=== PATIENT | female | born 1950 | race Caucasian/White ===

== ENCOUNTER 2024-05-28 15:22 | Inpatient (IN) | payer MEDICARE, OTHER ==
[~2024-05-28] VITALS: Ht 160 cm; Wt 55.8 kg
[2024-05-28] MEDS ORDERED: HYDROMORPHONE 2 MG/1 ML DISP.SYRIN ONE (16:53)
[2024-05-28 16:54] LABS: BASOPHILS # (AUTO) 0.1 K/UL (0.0-0.2); BASOPHILS % (AUTO) 1.1 % (0.0-2.0); EOSINOPHILS # (AUTO) 0.1 K/uL (0.0-0.7); EOSINOPHILS % (AUTO) 1.5 % (0.0-7.0); HEMATOCRIT 32.8 % (31.2-41.9); HEMOGLOBIN 10.9 g/dL (10.9-14.3); LYMPHOCYTES # (AUTO) 1.8 K/uL (0.8-4.8); MEAN CORPUSCULAR HEMOGLOBIN 30.6 uug (24.7-32.8); MEAN CORPUSCULAR HGB CONC 33 g/dL (32.3-35.6); MONOCYTES # (AUTO) 0.7 K/uL (0.1-1.30); NEUTROPHILS # (AUTO) 4.6 K/uL (1.8-8.9); NEUTROPHILS % (AUTO) 63.4 % (38.5-71.5); PLATELET COUNT (AUTO) 258 K/uL (179-408); RED BLOOD CELL COUNT(AUTO) 3.57 MIL/uL (3.63-4.92); RED CELL DISTRIBUTION WIDTH 14.4 % (12.3-17.7); WHITE BLOOD COUNT (AUTO) 7.3 K/uL (3.8-11.8)
[2024-05-28] MEDS: HYDROMORPHONE 1 MG/1 ML DISP.SYRIN IM ONE (16:57)
[2024-05-28 16:58] LABS: DIFFERENTIAL COMMENT 1
[2024-05-28 17:02] LABS: CALCIUM 8.4 mg/dL (8.5-10.1); CARBON DIOXIDE 26 mmol/L (21-32); CHLORIDE 105 mmol/L (98-107); GLUCOSE 92 mg/dL (74-106); POTASSIUM 4.3 mmol/L (3.5-5.1); SODIUM SERUM 139 mmol/L (136-145); UREA NITROGEN, BLOOD 19 mg/dL (7-18)
[2024-05-28 17:11] LABS: ALANINE AMINOTRANSFERASE 22 U/L (14-59); ALBUMIN 3.2 g/dL (3.4-5.0); ALKALINE PHOSPHATASE 91 U/L (50-136); ASPARTATE AMINOTRANSFERASE 21 U/L (15-37); BILIRUBIN,DIRECT 0.1 mg/dL (0.0-0.2); BILIRUBIN,TOTAL 0.3 mg/dL (0.2-1.0); TOTAL PROTEIN, SERUM 7.3 g/dL (6.4-8.2)
[2024-05-28] MEDS ORDERED: ZOLPIDEM 5 MG TABLET PO PRN ×2 (20:30)
[2024-05-28] MEDS: BLOOD SUGAR DIAGNOSTIC 1 EACH STRIP VI ONE (20:30)
[2024-05-28] MEDS ORDERED: MAGNESIUM HYDROXIDE 30 ML LIQUID UDC PO PRN (20:30)
[2024-05-28] MEDS: LORAZEPAM 1 MG TABLET PO PRN (21:40)
[2024-05-28] MEDS ORDERED: CLON0.1T PO (21:59)
[2024-05-28] MEDS ORDERED: BACL5TAB PO (21:59)
[2024-05-28] MEDS ORDERED: DULO40CA2 PO (21:59)
[2024-05-28] MEDS ORDERED: DOCU100C36 PO (21:59)
[2024-05-28] MEDS ORDERED: FAMO20TA8 PO (21:59)
[2024-05-28] MEDS ORDERED: CHOL10005 PO (21:59)
[2024-05-28] MEDS ORDERED: PANT40TA2 PO (22:06)
[2024-05-28] MEDS ORDERED: HYDR-3980 PO (22:06)
[2024-05-28] MEDS ORDERED: GABA300C PO (22:06)
[2024-05-28] MEDS ORDERED: LEVO50TA8 PO (22:06)
[2024-05-28] MEDS ORDERED: MIRT-121 PO (22:06)
[2024-05-28] MEDS ORDERED: CALC500T13 PO (22:15)
[2024-05-28] MEDS ORDERED: SENN-18 PO (22:15)
[2024-05-28] MEDS ORDERED: ONDA4TAB5 PO (22:15)
[2024-05-28] MEDS ORDERED: ROPI0.255 PO (22:15)
[2024-05-28] MEDS ORDERED: SUCR1TAB PO (22:15)
[2024-05-28] MEDS: SUCRALFATE 1 G TABLET PO SCH (23:30)
[2024-05-29] MEDS: BACLOFEN 10 MG TABLET PO SCH (06:58)
[2024-05-29] MEDS: GABAPENTIN 300 MG CAPSULE PO SCH (06:59)
[2024-05-29] MEDS: PANTOPRAZOLE SODIUM 40 MG TABLET.DR PO SCH (06:59)
[2024-05-29] MEDS: LEVOTHYROXINE SODIUM 50 MCG TABLET PO SCH (06:59)
[2024-05-29] MEDS ORDERED: ACET-2154 PO (07:41)
[2024-05-29] MEDS ORDERED: MAG355OR18 PO (07:41)
[2024-05-29] MEDS ORDERED: BISA10SU61 RC (07:44)
[2024-05-29] MEDS ORDERED: NA P133E RC (07:44)
[2024-05-29] MEDS ORDERED: MAGN400O6 PO (07:44)
[2024-05-29] MEDS ORDERED: CALC300T4 PO (07:45)
[2024-05-29] MEDS ORDERED: DICL100G31 TP (07:46)
[2024-05-29] MEDS ORDERED: ONDA4TAB5 PO (07:46)
[2024-05-29 08:16] VITALS: BP 131/82; TEMP 97.4; O2SAT 98
[2024-05-29] MEDS: SUCRALFATE 1 G TABLET PO SCH (09:16)
[2024-05-29 16:14] VITALS: BP 133/86; TEMP 97.6; O2SAT 97
[2024-05-29] MEDS: HYDROCODONE/APAP 10-325 MG TABLET PO PRN (16:42)
[2024-05-29 20:00] VITALS: BP 95/53; TEMP 98.4; O2SAT 94
[2024-05-29] MEDS: OXCARBAZEPINE 150 MG TABLET PO SCH (20:51)
[2024-05-29] MEDS: MIRTAZAPINE 15 MG TABLET PO SCH (20:51)
[2024-05-29] MEDS: ropiniROLE 0.25 MG TABLET PO SCH (20:51)
[2024-05-29] MEDS: SENNOSIDES 1 TABLET PO SCH (20:52)
[2024-05-30 08:12] VITALS: BP 142/75; TEMP 97.5; O2SAT 97
[2024-05-30] MEDS: CHOLECALCIFEROL 1,000 UNIT TABLET PO SCH (08:42)
[2024-05-30 16:12] VITALS: BP 148/98; TEMP 98.3; O2SAT 97
[2024-05-30 20:00] VITALS: BP 140/82; TEMP 98.3; O2SAT 94
[2024-05-30] MEDS: QUETIAPINE FUMARATE 25 MG TABLET PO SCH (21:02)
[2024-05-31] MEDS: ASPIRIN 81 MG TAB.CHEW PO SCH (08:44)
[2024-05-31 10:12] VITALS: BP 150/83; TEMP 97.8; O2SAT 95
[2024-05-31 15:24] VITALS: BP 139/74; O2SAT 97
[2024-05-31 16:04] VITALS: BP 142/87; TEMP 97.8; O2SAT 97
[2024-05-31 19:48] VITALS: BP 156/90; TEMP 97.6; O2SAT 97
[2024-05-31] MEDS: CLONIDINE HCL 0.1 MG TABLET PO PRN (19:50)
[2024-05-31] MEDS: ATORVASTATIN 40 MG TABLET PO SCH (20:26)
[2024-05-31 21:06] VITALS: BP 137/63; O2SAT 98
[2024-06-01] MEDS: REMEDY ESSENTIAL ZINC PASTE 113 GM TOP PRN (06:24)
[2024-06-01 08:08] VITALS: BP 134/74; TEMP 98.1; O2SAT 96
[2024-06-01] MEDS: QUETIAPINE FUMARATE 25 MG TABLET PO PRN (12:25)
[2024-06-01] MEDS: ACETAMINOPHEN 325 MG TABLET PO PRN (12:30)
[2024-06-01 16:12] VITALS: BP 127/71; TEMP 97.3; O2SAT 100
[2024-06-01 20:00] VITALS: BP 121/91; TEMP 94.3; O2SAT 100
[2024-06-01 20:25] VITALS: TEMP 97.2
[2024-06-02 07:56] VITALS: BP 134/80; TEMP 97.8; O2SAT 94
[2024-06-02 15:53] VITALS: BP 118/67; TEMP 98.2; O2SAT 92
[2024-06-02] MEDS: ENSURE ENLIVE (VAN) 240 ML LIQUID PO SCH (16:21)
[2024-06-02 20:00] VITALS: BP 110/67; TEMP 98; O2SAT 94
[2024-06-03 07:58] VITALS: BP 144/81; TEMP 98; O2SAT 94
[2024-06-03 15:55] VITALS: BP 154/85; TEMP 98.2; O2SAT 94
[2024-06-03 20:00] VITALS: BP 101/57; TEMP 97.2; O2SAT 94
[2024-06-03] MEDS: MIRTAZAPINE 15 MG TABLET PO SCH (20:26)
[2024-06-04 07:59] VITALS: BP 142/85; TEMP 98.2; O2SAT 96
[2024-06-04 15:38] VITALS: BP 131/80; TEMP 98; O2SAT 96
[2024-06-04 20:00] VITALS: BP 135/79; TEMP 98; O2SAT 96
[2024-06-05 08:12] VITALS: BP 113/67; TEMP 98.4; O2SAT 100
[2024-06-05 16:08] VITALS: BP 128/77; TEMP 97.5; O2SAT 98
[2024-06-05 20:00] VITALS: BP 142/80; TEMP 99.5; O2SAT 94
[2024-06-05] MEDS: QUETIAPINE FUMARATE 25 MG TABLET PO SCH (21:51)
[2024-06-05] MEDS: ATORVASTATIN 20 MG TABLET PO SCH (21:53)
[2024-06-06 08:14] VITALS: BP 126/70; TEMP 97.7; O2SAT 100
[2024-06-06 16:10] VITALS: BP 132/76; TEMP 97.8; O2SAT 94
[2024-06-06 19:00] VITALS: BP 120/84; TEMP 98.4; O2SAT 95
[2024-06-06] MEDS ORDERED: OXCARBAZEPINE 150 MG TABLET ONE (20:54)
[2024-06-07] MEDS: MAG HYDROX/AL HYDROX/SIMETH 30 ML LIQUID UDC PO PRN (00:23)
[2024-06-07 07:56] VITALS: BP 124/72; TEMP 98; O2SAT 99
[2024-06-07] MEDS: DIPHENOXYLATE HCL/ATROP SULF TABLET PO PRN (13:17)
[2024-06-07 15:45] VITALS: BP 112/70; TEMP 98; O2SAT 98
[2024-06-07 22:09] VITALS: BP 114/78; TEMP 98.3; O2SAT 96
== END 2024-06-08 03:04 | disposition short-term general hospital (02) | DRG 885 ==
LOC: ER 15:22 → GPS 19:55
PROVIDERS: ADMIT Psychiatry & Neurology Psychiatry; ATTEND Nurse Practitioner Acute Care
DX: F39 Unspecified mood [affective] disorder (principal); N18.9 Chronic kidney disease, unspecified; S72.142A Displaced intertrochanteric fracture of left femur, initial encounter for closed fracture; E44.1 Mild protein-calorie malnutrition; E88.09 Other disorders of plasma-protein metabolism, not elsewhere classified; E78.5 Hyperlipidemia, unspecified; W18.30XA Fall on same level, unspecified, initial encounter; Y92.230 Patient room in hospital as the place of occurrence of the external cause; I25.10 Atherosclerotic heart disease of native coronary artery without angina pectoris; K26.9 Duodenal ulcer, unspecified as acute or chronic, without hemorrhage or perforation; K29.70 Gastritis, unspecified, without bleeding; K58.9 Irritable bowel syndrome, unspecified; I12.9 Hypertensive chronic kidney disease with stage 1 through stage 4 chronic kidney disease, or unspecified chronic kidney disease; E03.9 Hypothyroidism, unspecified; Z79.890 Hormone replacement therapy; S09.90XA Unspecified injury of head, initial encounter; S62.172A Displaced fracture of trapezium [larger multangular], left wrist, initial encounter for closed fracture; Z79.899 Other long term (current) drug therapy; Z87.440 Personal history of urinary (tract) infections
CPT/HCPCS: 36415; 70150; 70450; 73130; 73501; 73700; 74018; 83605; 84484; 85025; C1758; J1171; J8499

== ENCOUNTER 2024-06-08 03:08 | Inpatient (IN) | payer MEDICARE, OTHER ==
[~2024-06-08] VITALS: Ht 160 cm; Wt 64.5 kg
[~2024-06-08 03:08] MED LIST: ACET-2154 PO; BACL5TAB PO; BISA10SU61 RC; CALC300T4 PO; CALC500T13 PO; CHOL10005 PO; CLON0.1T PO; DICL100G31 TP; DOCU100C36 PO; FAMO20TA8 PO; GABA300C PO; HYDR-3980 PO; LEVO50TA8 PO; MAG355OR18 PO; MAGN400O6 PO; NA P133E RC; ONDA4TAB5 PO; PANT40TA2 PO; ROPI0.255 PO; SENN-18 PO; SUCR1TAB PO
[2024-06-08] MEDS ORDERED: HYDROMORPHONE 1 MG/1 ML DISP.SYRIN IV ONE (03:30)
[2024-06-08] MEDS ORDERED: ONDANSETRON 4 MG/2 ML VIAL IV ONE (03:30)
[2024-06-08] MEDS ORDERED: IV NORMAL SALINE 500 ML IV ONE (03:45)
[2024-06-08] MEDS ORDERED: ACETAMINOPHEN 325 MG TABLET PO PRN (04:45)
[2024-06-08] MEDS ORDERED: HYDROMORPHONE 1 MG/1 ML DISP.SYRIN ONE (05:00)
[2024-06-08] MEDS ORDERED: ONDANSETRON ODT 4 MG TAB.RAPDIS ONE (05:00)
[2024-06-08] MEDS: ONDANSETRON ODT 4 MG TAB.RAPDIS SL ONE (05:03)
[2024-06-08] MEDS: HYDROMORPHONE 1 MG/1 ML DISP.SYRIN IM ONE (05:03)
[2024-06-08 06:09] LABS: BASOPHILS # (AUTO) 0.1 K/UL (0.0-0.2); EOSINOPHILS # (AUTO) 0.2 K/uL (0.0-0.7); EOSINOPHILS % (AUTO) 2.2 % (0.0-7.0); HEMATOCRIT 37.1 % (31.2-41.9); HEMOGLOBIN 12.4 g/dL (10.9-14.3); LYMPHOCYTES # (AUTO) 1.1 K/uL (0.8-4.8); LYMPHOCYTES % (AUTO) 13.5 % (20.5-51.5); MEAN CORPUSCULAR HEMOGLOBIN 30.8 uug (24.7-32.8); MEAN CORPUSCULAR HGB CONC 33 g/dL (32.3-35.6); MEAN CORPUSCULAR VOLUME 92.4 fL (75.5-95.3); MONOCYTES # (AUTO) 0.8 K/uL (0.1-1.30); MONOCYTES % (AUTO) 9.2 % (0.0-11.0); NEUTROPHILS % (AUTO) 74.1 % (38.5-71.5); PLATELET COUNT (AUTO) 208 K/uL (179-408); RED BLOOD CELL COUNT(AUTO) 4.02 MIL/uL (3.63-4.92); RED CELL DISTRIBUTION WIDTH 14.8 % (12.3-17.7); WHITE BLOOD COUNT (AUTO) 8.2 K/uL (3.8-11.8)
[2024-06-08 06:25] LABS: DIFFERENTIAL COMMENT 1
[2024-06-08 06:32] LABS: ALANINE AMINOTRANSFERASE 26 U/L (14-59); ALKALINE PHOSPHATASE 95 U/L (50-136); ASPARTATE AMINOTRANSFERASE 26 U/L (15-37); BILIRUBIN,DIRECT 0.1 mg/dL (0.0-0.2); BILIRUBIN,TOTAL 0.4 mg/dL (0.2-1.0); CALCIUM 9.1 mg/dL (8.5-10.1); CARBON DIOXIDE 29 mmol/L (21-32); CHLORIDE 104 mmol/L (98-107); CREATININE 0.9 mg/dL (0.6-1.3); GLUCOSE 131 mg/dL (74-106); POTASSIUM 4.2 mmol/L (3.5-5.1); SODIUM SERUM 142 mmol/L (136-145); TOTAL PROTEIN, SERUM 7.6 g/dL (6.4-8.2); UREA NITROGEN, BLOOD 25 mg/dL (7-18)
[2024-06-08] MEDS: LEVOTHYROXINE SODIUM 50 MCG TABLET PO SCH (12:24)
[2024-06-08] MEDS ORDERED: LEVOTHYROXINE SODIUM 50 MCG TABLET ONE (12:37)
[2024-06-08] MEDS ORDERED: MORPHINE SULFATE 2 MG/1 ML DISP.SYRIN ONE ×3 (12:37→20:08)
[2024-06-08] MEDS ORDERED: PANTOPRAZOLE SODIUM 40 MG VIAL ONE (12:37)
[2024-06-08] MEDS: PANTOPRAZOLE SODIUM 40 MG VIAL IV SCH (12:42)
[2024-06-08] MEDS: MORPHINE SULFATE 2 MG/1 ML DISP.SYRIN IV PRN (12:42)
[2024-06-08] MEDS: IV D5 1/2 NS 1000 ML 1,000 ML IV SCH (13:17)
[2024-06-08] MEDS: HYDROCODONE/APAP 5-325MG TABLET PO PRN (17:45)
[2024-06-08] MEDS ORDERED: HYDROCODONE/APAP 5-325MG TABLET ONE (17:47)
[2024-06-08 21:07] VITALS: BP 126/65; TEMP 97.9; O2SAT 96
[2024-06-08] MEDS: HYDROMORPHONE 1 MG/1 ML DISP.SYRIN IV PRN (21:40)
[2024-06-08] MEDS ORDERED: TRAZODONE 50 MG TABLET PO PRN (22:15)
[2024-06-09] MEDS: OXYCODONE/APAP 5-325 MG TABLET PO PRN (01:42)
[2024-06-09] MEDS: ONDANSETRON 4 MG/2 ML VIAL IV PRN (01:46)
[2024-06-09] MEDS: IV D5 1/2 NS 1000 ML 1,000 ML IV PRN (05:10)
[2024-06-09 06:48] LABS: BASOPHILS # (AUTO) 0.1 K/UL (0.0-0.2); BASOPHILS % (AUTO) 0.9 % (0.0-2.0); EOSINOPHILS # (AUTO) 0.2 K/uL (0.0-0.7); EOSINOPHILS % (AUTO) 2.1 % (0.0-7.0); HEMATOCRIT 32.8 % (31.2-41.9); HEMOGLOBIN 10.9 g/dL (10.9-14.3); LYMPHOCYTES # (AUTO) 1.3 K/uL (0.8-4.8); LYMPHOCYTES % (AUTO) 15.6 % (20.5-51.5); MEAN CORPUSCULAR HEMOGLOBIN 30.7 uug (24.7-32.8); MEAN CORPUSCULAR HGB CONC 33 g/dL (32.3-35.6); MEAN CORPUSCULAR VOLUME 92.5 fL (75.5-95.3); MONOCYTES # (AUTO) 0.8 K/uL (0.1-1.30); NEUTROPHILS # (AUTO) 5.9 K/uL (1.8-8.9); NEUTROPHILS % (AUTO) 71.4 % (38.5-71.5); PLATELET COUNT (AUTO) 186 K/uL (179-408); RED BLOOD CELL COUNT(AUTO) 3.55 MIL/uL (3.63-4.92); RED CELL DISTRIBUTION WIDTH 14.7 % (12.3-17.7); WHITE BLOOD COUNT (AUTO) 8.2 K/uL (3.8-11.8)
[2024-06-09 06:54] LABS: DIFFERENTIAL COMMENT 1
[2024-06-09 06:57] VITALS: BP 112/51; TEMP 98.2; O2SAT 92
[2024-06-09 07:03] LABS: CARBON DIOXIDE 26 mmol/L (21-32); CHLORIDE 103 mmol/L (98-107); CREATININE 0.9 mg/dL (0.6-1.3); GLUCOSE 137 mg/dL (74-106); MAGNESIUM 1.9 mg/dL (1.8-2.4); PHOSPHOROUS 3.2 mg/dL (2.5-4.9); SODIUM SERUM 139 mmol/L (136-145); UREA NITROGEN, BLOOD 17 mg/dL (7-18)
[2024-06-09] MEDS ORDERED: FENTANYL CITRATE 100 MCG/2 ML AMPUL ONE (13:00)
[2024-06-09] MEDS ORDERED: MIDAZOLAM HCL 2 MG/2 ML VIAL ONE (13:00)
[2024-06-09] MEDS ORDERED: VASOPRESSIN 20 UNIT/ML VIAL ONE (13:01)
[2024-06-09] MEDS ORDERED: VANCOMYCIN 1000 MG VIAL ONE (13:28)
[2024-06-09] MEDS ORDERED: HYDROMORPHONE 1 MG/1 ML DISP.SYRIN IVP PRN (14:15)
[2024-06-09 15:25] VITALS: BP 160/78; TEMP 98.5; O2SAT 97
[2024-06-09] MEDS: POTASSIUM CHLORIDE 20 MEQ in IV D5 1/2 NS 1000 ML 1,000 ML IV PRN (15:25)
[2024-06-09 15:40] VITALS: BP 153/74; TEMP 98.4
[2024-06-09 16:10] VITALS: BP 157/77; TEMP 98; O2SAT 98
[2024-06-09] MEDS: HYDROCODONE/APAP 10-325 MG TABLET PO PRN (17:42)
[2024-06-09 20:00] VITALS: BP 130/70; TEMP 98.9; O2SAT 95
[2024-06-09] MEDS: MORPHINE SULFATE 2 MG/1 ML DISP.SYRIN IV PRN (21:58)
[2024-06-09] MEDS: CEFAZOLIN 1 G in IV DEXTROSE 5% 50 ML IV SCH (22:10)
[2024-06-10 01:13] VITALS: O2SAT 98
[2024-06-10 06:57] VITALS: BP 138/70; TEMP 98.7; O2SAT 93
[2024-06-10 08:46] VITALS: BP 128/64; TEMP 98.5; O2SAT 100
[2024-06-10 17:08] LABS: BASOPHILS % (AUTO) 0.6 % (0.0-2.0); EOSINOPHILS # (AUTO) 0.3 K/uL (0.0-0.7); EOSINOPHILS % (AUTO) 3.1 % (0.0-7.0); HEMATOCRIT 24.3 % (31.2-41.9); HEMOGLOBIN 8.3 g/dL (10.9-14.3); LYMPHOCYTES # (AUTO) 1.4 K/uL (0.8-4.8); LYMPHOCYTES % (AUTO) 16.8 % (20.5-51.5); MEAN CORPUSCULAR HEMOGLOBIN 31.2 uug (24.7-32.8); MEAN CORPUSCULAR HGB CONC 34 g/dL (32.3-35.6); MEAN CORPUSCULAR VOLUME 91.3 fL (75.5-95.3); MONOCYTES # (AUTO) 0.6 K/uL (0.1-1.30); MONOCYTES % (AUTO) 7.5 % (0.0-11.0); NEUTROPHILS # (AUTO) 5.8 K/uL (1.8-8.9); PLATELET COUNT (AUTO) 143 K/uL (179-408); RED BLOOD CELL COUNT(AUTO) 2.67 MIL/uL (3.63-4.92); RED CELL DISTRIBUTION WIDTH 14.2 % (12.3-17.7); WHITE BLOOD COUNT (AUTO) 8.1 K/uL (3.8-11.8)
[2024-06-10 17:15] LABS: ALANINE AMINOTRANSFERASE 29 U/L (14-59); ALBUMIN 2.2 g/dL (3.4-5.0); ALKALINE PHOSPHATASE 74 U/L (50-136); ASPARTATE AMINOTRANSFERASE 43 U/L (15-37); BILIRUBIN,TOTAL 0.3 mg/dL (0.2-1.0); CALCIUM 7.9 mg/dL (8.5-10.1); CARBON DIOXIDE 23 mmol/L (21-32); CHLORIDE 103 mmol/L (98-107); CHOLESTEROL 129 mg/dL (<200); CREATININE 0.7 mg/dL (0.6-1.3); GLUCOSE 140 mg/dL (74-106); HDL CHOLESTEROL 53 mg/dL (40-60); MAGNESIUM 1.8 mg/dL (1.8-2.4); PHOSPHOROUS 3.1 mg/dL (2.5-4.9); POTASSIUM 4.2 mmol/L (3.5-5.1); SODIUM SERUM 137 mmol/L (136-145); TOTAL PROTEIN, SERUM 6.1 g/dL (6.4-8.2); TRIGLYCERIDES 64 MG/DL (30-150); UREA NITROGEN, BLOOD 8 mg/dL (7-18)
[2024-06-10 17:22] VITALS: BP 147/56; TEMP 98; O2SAT 94
[2024-06-10 17:29] LABS: THYROID STIMULATING HORMONE 0.866 mIU/mL (0.358-3.740)
[2024-06-10 17:33] VITALS: O2SAT 98
[2024-06-10 20:00] VITALS: BP 153/60; TEMP 98.5; O2SAT 100
[2024-06-11 04:34] VITALS: BP 131/71; TEMP 99.1; O2SAT 92
[2024-06-11] MEDS: PANTOPRAZOLE ORAL SUSPENSION 40 MG SUSPDR.PKT PO SCH (06:22)
[2024-06-11 07:25] LABS: BASOPHILS # (AUTO) 0.1 K/UL (0.0-0.2); BASOPHILS % (AUTO) 1.3 % (0.0-2.0); EOSINOPHILS # (AUTO) 0.3 K/uL (0.0-0.7); EOSINOPHILS % (AUTO) 4.3 % (0.0-7.0); HEMATOCRIT 22.9 % (31.2-41.9); HEMOGLOBIN 7.8 g/dL (10.9-14.3); LYMPHOCYTES # (AUTO) 1.2 K/uL (0.8-4.8); LYMPHOCYTES % (AUTO) 18.5 % (20.5-51.5); MEAN CORPUSCULAR HEMOGLOBIN 31.2 uug (24.7-32.8); MEAN CORPUSCULAR HGB CONC 34 g/dL (32.3-35.6); MEAN CORPUSCULAR VOLUME 91.7 fL (75.5-95.3); MONOCYTES # (AUTO) 0.5 K/uL (0.1-1.30); MONOCYTES % (AUTO) 8.2 % (0.0-11.0); NEUTROPHILS # (AUTO) 4.5 K/uL (1.8-8.9); NEUTROPHILS % (AUTO) 67.7 % (38.5-71.5); PLATELET COUNT (AUTO) 149 K/uL (179-408); RED CELL DISTRIBUTION WIDTH 14.8 % (12.3-17.7); WHITE BLOOD COUNT (AUTO) 6.7 K/uL (3.8-11.8)
[2024-06-11 07:43] LABS: CALCIUM 7.6 mg/dL (8.5-10.1); CARBON DIOXIDE 25 mmol/L (21-32); CHLORIDE 107 mmol/L (98-107); CREATININE 0.9 mg/dL (0.6-1.3); GLUCOSE 155 mg/dL (74-106); MAGNESIUM 1.9 mg/dL (1.8-2.4); PHOSPHOROUS 2.6 mg/dL (2.5-4.9); POTASSIUM 4.3 mmol/L (3.5-5.1); SODIUM SERUM 141 mmol/L (136-145); UREA NITROGEN, BLOOD 9 mg/dL (7-18)
[2024-06-11 07:50] LABS: DIFFERENTIAL COMMENT 1
[2024-06-11 08:52] VITALS: BP 126/70; TEMP 98.2; O2SAT 92
[2024-06-11] MEDS: DOCUSATE SODIUM 100 MG CAPSULE PO SCH (12:14)
[2024-06-11] MEDS ORDERED: DULO60CA64 PO (13:58)
[2024-06-11] MEDS ORDERED: MIRT-93 PO (13:58)
[2024-06-11] MEDS ORDERED: CALC-494 PO (14:03)
[2024-06-11] MEDS ORDERED: CHOL-35 PO (14:03)
[2024-06-11] MEDS ORDERED: GABA-532 PO (14:03)
[2024-06-11 15:55] VITALS: BP 120/71; TEMP 97.8; O2SAT 94
[2024-06-11 19:31] VITALS: BP 107/65; TEMP 97.7; O2SAT 93
[2024-06-11] MEDS: MIRTAZAPINE 15 MG TABLET PO SCH (20:23)
[2024-06-11] MEDS: QUETIAPINE FUMARATE 25 MG TABLET PO SCH (20:24)
[2024-06-12 05:04] VITALS: BP 124/66; TEMP 97.9; O2SAT 93
[2024-06-12] MEDS: PANTOPRAZOLE SODIUM 40 MG TABLET.DR PO SCH (06:16)
[2024-06-12 08:00] VITALS: BP 141/78; TEMP 98.7; O2SAT 91
[2024-06-12 11:07] LABS: BASOPHILS # (AUTO) 0.1 K/UL (0.0-0.2); BASOPHILS % (AUTO) 1.1 % (0.0-2.0); EOSINOPHILS # (AUTO) 0.4 K/uL (0.0-0.7); EOSINOPHILS % (AUTO) 4.8 % (0.0-7.0); HEMATOCRIT 24.9 % (31.2-41.9); HEMOGLOBIN 8.5 g/dL (10.9-14.3); LYMPHOCYTES # (AUTO) 1.5 K/uL (0.8-4.8); LYMPHOCYTES % (AUTO) 19.7 % (20.5-51.5); MEAN CORPUSCULAR HEMOGLOBIN 31.2 uug (24.7-32.8); MEAN CORPUSCULAR HGB CONC 34 g/dL (32.3-35.6); MEAN CORPUSCULAR VOLUME 91.2 fL (75.5-95.3); MONOCYTES # (AUTO) 0.6 K/uL (0.1-1.30); MONOCYTES % (AUTO) 7.9 % (0.0-11.0); NEUTROPHILS # (AUTO) 4.9 K/uL (1.8-8.9); NEUTROPHILS % (AUTO) 66.5 % (38.5-71.5); PLATELET COUNT (AUTO) 183 K/uL (179-408); RED BLOOD CELL COUNT(AUTO) 2.74 MIL/uL (3.63-4.92); RED CELL DISTRIBUTION WIDTH 14.8 % (12.3-17.7); WHITE BLOOD COUNT (AUTO) 7.4 K/uL (3.8-11.8)
[2024-06-12 11:20] LABS: DIFFERENTIAL COMMENT 1
[2024-06-12 12:15] LABS: ALANINE AMINOTRANSFERASE 104 U/L (14-59); ALBUMIN 2.1 g/dL (3.4-5.0); ALKALINE PHOSPHATASE 112 U/L (50-136); ASPARTATE AMINOTRANSFERASE 107 U/L (15-37); BILIRUBIN,TOTAL 0.4 mg/dL (0.2-1.0); CALCIUM 8.4 mg/dL (8.5-10.1); CARBON DIOXIDE 24 mmol/L (21-32); CHLORIDE 102 mmol/L (98-107); CREATININE 0.9 mg/dL (0.6-1.3); GLUCOSE 126 mg/dL (74-106); MAGNESIUM 1.9 mg/dL (1.8-2.4); PHOSPHOROUS 3.6 mg/dL (2.5-4.9); POTASSIUM 4.2 mmol/L (3.5-5.1); SODIUM SERUM 138 mmol/L (136-145); TOTAL PROTEIN, SERUM 6.2 g/dL (6.4-8.2); UREA NITROGEN, BLOOD 11 mg/dL (7-18)
[2024-06-12] MEDS: OXCARBAZEPINE 150 MG TABLET PO SCH (14:48)
[2024-06-12 15:16] LABS: LIPASE 28 U/L (16-77)
[2024-06-12 15:24] LABS: IRON, SERUM 21 ug/dL (50-175)
[2024-06-12 16:00] VITALS: BP 133/53; TEMP 98.4; O2SAT 94
[2024-06-12] MEDS ORDERED: RIVA15TA PO (16:50)
[2024-06-12] MEDS ORDERED: QUET25TA36 PO (16:50)
[2024-06-12] MEDS ORDERED: LEVO25TA9 PO (16:50)
[2024-06-12] MEDS ORDERED: DOCU-141 PO (16:50)
[2024-06-12] MEDS ORDERED: HYDR-3980 PO (16:50)
[2024-06-12] MEDS ORDERED: ATOR10TA PO (16:50)
[2024-06-12] MEDS ORDERED: OXCA150T5 PO (16:50)
[2024-06-12] MEDS ORDERED: ACET325T53 PO (16:50)
[2024-06-12] MEDS ORDERED: MULT-1045 PO (16:50)
[2024-06-12] MEDS ORDERED: MIRT-93 PO (16:50)
[2024-06-12] MEDS ORDERED: FERR324T17 PO (16:53)
[2024-06-13] MEDS ORDERED: LEVOTHYROXINE SODIUM 25 MCG TABLET PO SCH (07:00)
== END 2024-06-12 17:40 | DRG 481 ==
LOC: ER 03:11 → TRANSITION 04:15 → MEDSURG3 20:19
PROVIDERS: ATTEND Internal Medicine
PROC: 05HA33Z Insertion of Infusion Device into Left Brachial Vein, Percutaneous Approach (ICD-10-PCS; 2024-06-08)
PROC: 0QS736Z Reposition Left Upper Femur with Intramedullary Internal Fixation Device, Percutaneous Approach (ICD-10-PCS; principal; 2024-06-09)
DX: S72.142A Displaced intertrochanteric fracture of left femur, initial encounter for closed fracture (principal); D68.59 Other primary thrombophilia; E44.1 Mild protein-calorie malnutrition; E44.0 Moderate protein-calorie malnutrition; W01.0XXA Fall on same level from slipping, tripping and stumbling without subsequent striking against object, initial encounter; Y93.89 Activity, other specified; Y92.230 Patient room in hospital as the place of occurrence of the external cause; Z74.09 Other reduced mobility; E03.9 Hypothyroidism, unspecified; G31.84 Mild cognitive impairment of uncertain or unknown etiology; R73.9 Hyperglycemia, unspecified; M15.9 Polyosteoarthritis, unspecified; Z87.11 Personal history of peptic ulcer disease; Z87.448 Personal history of other diseases of urinary system; Z68.25 Body mass index [BMI] 25.0-25.9, adult; K29.70 Gastritis, unspecified, without bleeding; R74.01 Elevation of levels of liver transaminase levels; E78.5 Hyperlipidemia, unspecified; D50.9 Iron deficiency anemia, unspecified; I25.10 Atherosclerotic heart disease of native coronary artery without angina pectoris; F32.9 Major depressive disorder, single episode, unspecified; E88.09 Other disorders of plasma-protein metabolism, not elsewhere classified; K58.9 Irritable bowel syndrome, unspecified; M81.0 Age-related osteoporosis without current pathological fracture; K42.9 Umbilical hernia without obstruction or gangrene; I11.9 Hypertensive heart disease without heart failure; K21.9 Gastro-esophageal reflux disease without esophagitis; R13.10 Dysphagia, unspecified; Z87.440 Personal history of urinary (tract) infections
CPT/HCPCS: 36415; 71045; 73502; 83550; 83690; 83735; 84100; 84443; 85025; 85610; 85730; 93307; A4606; A4649; A4663; A6209; A6213; C1713; G0378; J0690; J1171; J2250; J2270; J2405; J2470; J3010; J3370; J3480; J3490; Q0162

== ENCOUNTER 2024-06-20 20:18 | Inpatient (IN) | payer MEDICARE, OTHER ==
[~2024-06-20] VITALS: Ht 160 cm; Wt 68.0 kg
[~2024-06-20 20:18] MED LIST changes: -ACET-2154 PO; +ACET325T53 PO; +ATOR10TA PO; -CALC300T4 PO; -CALC500T13 PO; +CHOL-35 PO; -CHOL10005 PO; -CLON0.1T PO; -DICL100G31 TP; +DOCU-141 PO; -DOCU100C36 PO; -FAMO20TA8 PO; +FERR324T17 PO; +GABA-532 PO; -GABA300C PO; +LEVO25TA9 PO; -LEVO50TA8 PO; -MAG355OR18 PO; +MIRT-93 PO; +MULT-1045 PO; -ONDA4TAB5 PO; +OXCA150T5 PO; +QUET25TA36 PO; +RIVA15TA PO; -ROPI0.255 PO; -SUCR1TAB PO
[2024-06-20] MEDS ORDERED: HYDROMORPHONE 1 MG/1 ML DISP.SYRIN ONE (20:58)
[2024-06-20] MEDS ORDERED: ONDANSETRON 4 MG/2 ML VIAL ONE (20:58)
[2024-06-20] MEDS: HYDROMORPHONE 1 MG/1 ML DISP.SYRIN IV ONE (21:04)
[2024-06-20 21:05] LABS: BASOPHILS # (AUTO) 0.1 K/UL (0.0-0.2); BASOPHILS % (AUTO) 1.3 % (0.0-2.0); EOSINOPHILS # (AUTO) 0.1 K/uL (0.0-0.7); EOSINOPHILS % (AUTO) 0.8 % (0.0-7.0); HEMATOCRIT 27.6 % (31.2-41.9); HEMOGLOBIN 9.1 g/dL (10.9-14.3); LYMPHOCYTES # (AUTO) 1.6 K/uL (0.8-4.8); LYMPHOCYTES % (AUTO) 17.7 % (20.5-51.5); MEAN CORPUSCULAR HEMOGLOBIN 31.9 uug (24.7-32.8); MEAN CORPUSCULAR HGB CONC 33 g/dL (32.3-35.6); MEAN CORPUSCULAR VOLUME 96.4 fL (75.5-95.3); MONOCYTES # (AUTO) 0.6 K/uL (0.1-1.30); NEUTROPHILS # (AUTO) 6.4 K/uL (1.8-8.9); NEUTROPHILS % (AUTO) 73.2 % (38.5-71.5); PLATELET COUNT (AUTO) 314 K/uL (179-408); RED BLOOD CELL COUNT(AUTO) 2.86 MIL/uL (3.63-4.92); RED CELL DISTRIBUTION WIDTH 17.4 % (12.3-17.7); WHITE BLOOD COUNT (AUTO) 8.8 K/uL (3.8-11.8)
[2024-06-20] MEDS: ONDANSETRON 4 MG/2 ML VIAL IV ONE (21:05)
[2024-06-20 21:09] LABS: DIFFERENTIAL COMMENT 1
[2024-06-20 21:15] LABS: CARBON DIOXIDE 26 mmol/L (21-32); CHLORIDE 107 mmol/L (98-107); CREATININE 0.9 mg/dL (0.6-1.3); GLUCOSE 116 mg/dL (74-106); SODIUM SERUM 140 mmol/L (136-145); UREA NITROGEN, BLOOD 9 mg/dL (7-18)
[2024-06-20] MEDS ORDERED: ACETAMINOPHEN 325 MG TABLET PO PRN (23:45)
[2024-06-21] MEDS ORDERED: METOCLOPRAMIDE HCL 10 MG/2 ML VIAL ONE (00:29)
[2024-06-21] MEDS: METOCLOPRAMIDE HCL 10 MG/2 ML VIAL IV ONE (00:34)
[2024-06-21] MEDS ORDERED: HYDROMORPHONE 1 MG/1 ML DISP.SYRIN ONE (02:41)
[2024-06-21] MEDS: HYDROMORPHONE 1 MG/1 ML DISP.SYRIN IV ONE (02:46)
[2024-06-21 05:34] LABS: BASOPHILS # (AUTO) 0.1 K/UL (0.0-0.2); BASOPHILS % (AUTO) 1.5 % (0.0-2.0); EOSINOPHILS # (AUTO) 0.3 K/uL (0.0-0.7); EOSINOPHILS % (AUTO) 3.4 % (0.0-7.0); HEMATOCRIT 29.8 % (31.2-41.9); HEMOGLOBIN 9.6 g/dL (10.9-14.3); LYMPHOCYTES # (AUTO) 2.4 K/uL (0.8-4.8); LYMPHOCYTES % (AUTO) 28.8 % (20.5-51.5); MEAN CORPUSCULAR HEMOGLOBIN 31.7 uug (24.7-32.8); MEAN CORPUSCULAR HGB CONC 32 g/dL (32.3-35.6); MEAN CORPUSCULAR VOLUME 98.6 fL (75.5-95.3); MONOCYTES # (AUTO) 0.6 K/uL (0.1-1.30); MONOCYTES % (AUTO) 7.4 % (0.0-11.0); NEUTROPHILS # (AUTO) 4.9 K/uL (1.8-8.9); NEUTROPHILS % (AUTO) 58.9 % (38.5-71.5); PLATELET COUNT (AUTO) 110 K/uL (179-408); RED BLOOD CELL COUNT(AUTO) 3.02 MIL/uL (3.63-4.92); RED CELL DISTRIBUTION WIDTH 17.8 % (12.3-17.7); WHITE BLOOD COUNT (AUTO) 8.3 K/uL (3.8-11.8)
[2024-06-21 05:36] LABS: DIFFERENTIAL COMMENT 1
[2024-06-21 06:18] LABS: CALCIUM 8.7 mg/dL (8.5-10.1); CARBON DIOXIDE 25 mmol/L (21-32); CHLORIDE 106 mmol/L (98-107); CREATININE 0.8 mg/dL (0.6-1.3); GLUCOSE 95 mg/dL (74-106); PHOSPHOROUS 3.9 mg/dL (2.5-4.9); POTASSIUM 4.3 mmol/L (3.5-5.1); SODIUM SERUM 139 mmol/L (136-145); UREA NITROGEN, BLOOD 9 mg/dL (7-18)
[2024-06-21] MEDS: PANTOPRAZOLE SODIUM 40 MG TABLET.DR PO SCH (06:52)
[2024-06-21 06:53] VITALS: BP 129/73; TEMP 97.9; O2SAT 94
[2024-06-21] MEDS ORDERED: BISACODYL 10 MG SUPP.RECT RC PRN (09:30)
[2024-06-21] MEDS ORDERED: ACETAMINOPHEN 325 MG TABLET-SA PATIENTS-PAIN ONLY PO PRN (09:30)
[2024-06-21] MEDS ORDERED: MAGNESIUM HYDROXIDE 30 ML LIQUID UDC PO PRN (09:30)
[2024-06-21] MEDS ORDERED: FLEET ENEMA 133 ML BOTTLE RC PRN (09:30)
[2024-06-21] MEDS ORDERED: ASCO500C18 PO (09:30)
[2024-06-21] MEDS ORDERED: HYDROCODONE/APAP 10-325 MG TABLET PO PRN (09:30)
[2024-06-21] MEDS ORDERED: CLON0.1T PO (09:31)
[2024-06-21] MEDS ORDERED: DULO60CA45 PO (09:32)
[2024-06-21] MEDS ORDERED: FAMO-132 PO (09:33)
[2024-06-21] MEDS: ENOXAPARIN SODIUM 40 MG/0.4 ML DISP.SYRIN SQ SCH (09:34)
[2024-06-21] MEDS ORDERED: ONDA-104 PO (09:35)
[2024-06-21] MEDS ORDERED: SUCR1ORA15 PO (09:36)
[2024-06-21] MEDS ORDERED: ZINC220T4 PO (09:38)
[2024-06-21] MEDS ORDERED: MAG30ORA PO (09:41)
[2024-06-21] MEDS: ONDANSETRON 4 MG/2 ML VIAL IV PRN (10:04)
[2024-06-21] MEDS: MORPHINE SULFATE 2 MG/1 ML DISP.SYRIN IV PRN (10:06)
[2024-06-21 11:29] VITALS: BP 122/60; TEMP 98; O2SAT 94
[2024-06-21] MEDS: GABAPENTIN 100 MG CAPSULE PO SCH (11:44)
[2024-06-21] MEDS ORDERED: GABAPENTIN 100 MG CAPSULE PO SCH (13:00)
[2024-06-21] MEDS: OXCARBAZEPINE 150 MG TABLET PO SCH (13:05)
[2024-06-21] MEDS: BACLOFEN 10 MG TABLET PO SCH (13:05)
[2024-06-21 15:24] VITALS: BP 127/65; TEMP 98.8; O2SAT 96
[2024-06-21] MEDS: HYDROMORPHONE 1 MG/1 ML DISP.SYRIN IV PRN (15:37)
[2024-06-21] MEDS ORDERED: Medication Not On Formulary EA (Ferrous Gluconate 324 MG) PO SCH (17:00)
[2024-06-21] MEDS: FERROUS GLUCONATE 324 MG TABLET PO SCH (17:27)
[2024-06-21 19:45] VITALS: BP 104/54; TEMP 98.5; O2SAT 93
[2024-06-21] MEDS: DOCUSATE SODIUM 100 MG CAPSULE PO SCH (21:00)
[2024-06-21] MEDS: QUETIAPINE FUMARATE 25 MG TABLET PO SCH (21:00)
[2024-06-21] MEDS: SENNOSIDES 1 TABLET PO SCH (21:25)
[2024-06-21] MEDS: ATORVASTATIN 10 MG TABLET PO SCH (21:26)
[2024-06-21] MEDS: MIRTAZAPINE 15 MG TABLET PO SCH (21:27)
[2024-06-22 03:56] VITALS: BP 120/57; TEMP 98.2; O2SAT 92
[2024-06-22 06:42] LABS: BASOPHILS # (AUTO) 0.1 K/UL (0.0-0.2); BASOPHILS % (AUTO) 0.8 % (0.0-2.0); EOSINOPHILS # (AUTO) 0.4 K/uL (0.0-0.7); EOSINOPHILS % (AUTO) 5.9 % (0.0-7.0); HEMATOCRIT 24.8 % (31.2-41.9); HEMOGLOBIN 8.3 g/dL (10.9-14.3); LYMPHOCYTES # (AUTO) 1.5 K/uL (0.8-4.8); LYMPHOCYTES % (AUTO) 23.6 % (20.5-51.5); MEAN CORPUSCULAR HEMOGLOBIN 31.8 uug (24.7-32.8); MEAN CORPUSCULAR HGB CONC 34 g/dL (32.3-35.6); MEAN CORPUSCULAR VOLUME 94.7 fL (75.5-95.3); MONOCYTES # (AUTO) 0.5 K/uL (0.1-1.30); MONOCYTES % (AUTO) 7.3 % (0.0-11.0); NEUTROPHILS # (AUTO) 4.1 K/uL (1.8-8.9); NEUTROPHILS % (AUTO) 62.4 % (38.5-71.5); PLATELET COUNT (AUTO) 290 K/uL (179-408); RED BLOOD CELL COUNT(AUTO) 2.62 MIL/uL (3.63-4.92); RED CELL DISTRIBUTION WIDTH 17.8 % (12.3-17.7); WHITE BLOOD COUNT (AUTO) 6.5 K/uL (3.8-11.8)
[2024-06-22] MEDS: LEVOTHYROXINE SODIUM 25 MCG TABLET PO SCH (06:51)
[2024-06-22 06:54] LABS: CALCIUM 8.4 mg/dL (8.5-10.1); CARBON DIOXIDE 28 mmol/L (21-32); CHLORIDE 108 mmol/L (98-107); GLUCOSE 101 mg/dL (74-106); POTASSIUM 3.7 mmol/L (3.5-5.1); SODIUM SERUM 142 mmol/L (136-145); UREA NITROGEN, BLOOD 9 mg/dL (7-18)
[2024-06-22 06:56] LABS: DIFFERENTIAL COMMENT 1
[2024-06-22] MEDS ORDERED: PANTOPRAZOLE SODIUM 40 MG TABLET.DR PO SCH (09:00)
[2024-06-22] MEDS ORDERED: Medication Not On Formulary EA (Multivitamin (Multi-Vitamin Daily) 1 EACH) PO SCH (09:00)
[2024-06-22] MEDS: CHOLECALCIFEROL 1,000 UNIT TABLET PO SCH (09:02)
[2024-06-22] MEDS: MULTIVITAMINS,THERAPEUTIC TABLET PO SCH (09:02)
[2024-06-22] MEDS: RIVAROXABAN 15 MG TABLET PO SCH (09:04)
[2024-06-22] MEDS ORDERED: APIX5TAB PO (09:56)
[2024-06-22] MEDS ORDERED: ROPI0.255 PO (09:56)
[2024-06-22] MEDS ORDERED: MIRT-93 PO (09:56)
[2024-06-22] MEDS ORDERED: OXYC-128 PO (09:56)
[2024-06-22] MEDS ORDERED: ASCO500T85 PO (09:56)
[2024-06-22] MEDS ORDERED: SENN-87 PO (09:56)
[2024-06-22] MEDS ORDERED: LEVO50TA8 PO (09:56)
[2024-06-22] MEDS ORDERED: AMIN960L24 PO (09:56)
[2024-06-22 10:53] VITALS: BP 108/48; TEMP 98.4; O2SAT 95
[2024-06-22] MEDS: HYDROCODONE/APAP 10-325 MG TABLET PO PRN (15:34)
[2024-06-22 15:44] VITALS: BP 103/70; TEMP 97.9; O2SAT 95
[2024-06-22] MEDS: SUCRALFATE 1 G TABLET PO SCH (17:10)
[2024-06-22 19:51] VITALS: BP 96/52; TEMP 98.8; O2SAT 93
[2024-06-22] MEDS: ropiniROLE 0.25 MG TABLET PO SCH (21:10)
[2024-06-23] MEDS: KETOROLAC TROMETHAMINE 30 MG INJ IM PRN (01:50)
[2024-06-23 04:00] VITALS: BP 148/74; TEMP 98.4; O2SAT 95
[2024-06-23] MEDS: LEVOTHYROXINE SODIUM 50 MCG TABLET PO SCH (06:27)
[2024-06-23 06:37] LABS: BASOPHILS # (AUTO) 0.1 K/UL (0.0-0.2); EOSINOPHILS # (AUTO) 0.4 K/uL (0.0-0.7); EOSINOPHILS % (AUTO) 5.9 % (0.0-7.0); HEMATOCRIT 26.2 % (31.2-41.9); HEMOGLOBIN 8.7 g/dL (10.9-14.3); LYMPHOCYTES # (AUTO) 2.1 K/uL (0.8-4.8); LYMPHOCYTES % (AUTO) 34.3 % (20.5-51.5); MEAN CORPUSCULAR HEMOGLOBIN 31.6 uug (24.7-32.8); MEAN CORPUSCULAR HGB CONC 33 g/dL (32.3-35.6); MEAN CORPUSCULAR VOLUME 94.5 fL (75.5-95.3); MONOCYTES # (AUTO) 0.5 K/uL (0.1-1.30); MONOCYTES % (AUTO) 8.1 % (0.0-11.0); NEUTROPHILS # (AUTO) 3.2 K/uL (1.8-8.9); NEUTROPHILS % (AUTO) 50.7 % (38.5-71.5); PLATELET COUNT (AUTO) 306 K/uL (179-408); RED BLOOD CELL COUNT(AUTO) 2.77 MIL/uL (3.63-4.92); RED CELL DISTRIBUTION WIDTH 17.8 % (12.3-17.7); WHITE BLOOD COUNT (AUTO) 6.2 K/uL (3.8-11.8)
[2024-06-23 06:48] LABS: CALCIUM 8.5 mg/dL (8.5-10.1); CARBON DIOXIDE 31 mmol/L (21-32); CHLORIDE 106 mmol/L (98-107); CREATININE 0.9 mg/dL (0.6-1.3); DIFFERENTIAL COMMENT 1; GLUCOSE 92 mg/dL (74-106); MAGNESIUM 2.1 mg/dL (1.8-2.4); PHOSPHOROUS 4.3 mg/dL (2.5-4.9); POTASSIUM 4.1 mmol/L (3.5-5.1); SODIUM SERUM 143 mmol/L (136-145); UREA NITROGEN, BLOOD 12 mg/dL (7-18)
[2024-06-23] MEDS: ASCORBIC ACID 500 MG TABLET PO SCH (08:27)
[2024-06-23] MEDS: DULOXETINE 60 MG CAPSULE.DR PO SCH (08:27)
[2024-06-23] MEDS: ZINC SULFATE 220 MG CAPSULE PO SCH (08:28)
[2024-06-23] MEDS: HYDROCODONE/APAP 5-325MG TABLET PO PRN (08:28)
[2024-06-23] MEDS: APIXABAN 5 MG TABLET PO SCH (08:29)
[2024-06-23 11:36] VITALS: BP 121/65; TEMP 98.4; O2SAT 95
[2024-06-23] MEDS: OXYCODONE HCL 10 MG TAB.SR.12H PO SCH (11:48)
[2024-06-23] MEDS: REMEDY ESSENTIAL ZINC PASTE 113 GM TP PRN (12:52)
[2024-06-23 16:00] VITALS: BP 95/42; TEMP 98.6; O2SAT 96
[2024-06-23 19:45] VITALS: BP 110/59; TEMP 98.3; O2SAT 92
[2024-06-23] MEDS: NALOXONE HCL 0.4 MG/ML AMPUL IV PRN (22:25)
[2024-06-23] MEDS: ZOLPIDEM 5 MG TABLET PO PRN (23:06)
[2024-06-24] VITALS (7 sets, daily range): BP systolic 117–144; BP diastolic 55–75; TEMP 97.9–99.3; O2SAT 93–97
[2024-06-24] MEDS: OXYCODONE HCL 5 MG TABLET PO PRN (09:27)
[2024-06-24] MEDS: MAGNESIUM HYDROXIDE 30 ML LIQUID UDC PO PRN (12:08)
[2024-06-24] MEDS ORDERED: OXYCODONE HCL 5 MG TABLET PO PRN (14:00)
[2024-06-24] MEDS ORDERED: OXYC5CAP18 PO (15:35)
[2024-06-24] MEDS ORDERED: OXYC10TA59 PO (15:35)
[2024-06-25 04:24] VITALS: BP 139/71; TEMP 99.2; O2SAT 91
[2024-06-25] MEDS: OXYCODONE HCL 5 MG TABLET PO PRN (06:34)
[2024-06-25 08:34] VITALS: BP 131/81; TEMP 98.7; O2SAT 98
[2024-06-25] MEDS ORDERED: LACTULOSE 20 G/30 ML LIQUID UDC PO PRN (09:00)
[2024-06-25] MEDS: MIRALAX 17 GM POWD.PACK PO SCH (09:15)
[2024-06-25] MEDS: ONDANSETRON ODT 4 MG TAB.RAPDIS SL PRN (09:36)
[2024-06-25] MEDS: FLEET ENEMA 133 ML BOTTLE RC ONE (14:41)
[2024-06-26] MEDS ORDERED: PROTEIN SUPPLEMENT (PROSTAT) 30 ML LIQUID PO SCH (08:00)
[2024-06-26] MEDS ORDERED: NUTRISOURCE FIBER 4 GM PACKET PO SCH (09:00)
== END 2024-06-25 15:00 | DRG 948 ==
LOC: ER 20:18 → MEDSURG3 06-21 06:24
PROVIDERS: ADMIT Student in an Organized Health Care Education/Training Program; ATTEND Student in an Organized Health Care Education/Training Program
DX: G89.11 Acute pain due to trauma (principal); E44.0 Moderate protein-calorie malnutrition; D68.59 Other primary thrombophilia; M25.552 Pain in left hip; S72.142D Displaced intertrochanteric fracture of left femur, subsequent encounter for closed fracture with routine healing; G89.18 Other acute postprocedural pain; S90.32XA Contusion of left foot, initial encounter; X58.XXXA Exposure to other specified factors, initial encounter; Y92.129 Unspecified place in nursing home as the place of occurrence of the external cause; Z74.09 Other reduced mobility; D50.9 Iron deficiency anemia, unspecified; E03.9 Hypothyroidism, unspecified; Z79.890 Hormone replacement therapy; E05.90 Thyrotoxicosis, unspecified without thyrotoxic crisis or storm; E78.5 Hyperlipidemia, unspecified; Z87.11 Personal history of peptic ulcer disease; R74.01 Elevation of levels of liver transaminase levels; W19.XXXD Unspecified fall, subsequent encounter; Z68.26 Body mass index [BMI] 26.0-26.9, adult; M15.9 Polyosteoarthritis, unspecified; K59.00 Constipation, unspecified; I25.10 Atherosclerotic heart disease of native coronary artery without angina pectoris; M81.0 Age-related osteoporosis without current pathological fracture; R41.89 Other symptoms and signs involving cognitive functions and awareness; K58.9 Irritable bowel syndrome, unspecified; F32.9 Major depressive disorder, single episode, unspecified; Z79.01 Long term (current) use of anticoagulants; Z79.899 Other long term (current) drug therapy; K29.70 Gastritis, unspecified, without bleeding; E88.09 Other disorders of plasma-protein metabolism, not elsewhere classified; F91.9 Conduct disorder, unspecified; G25.81 Restless legs syndrome
CPT/HCPCS: 36415; 73551; 74018; 83735; 84100; 85025; A4606; A4663; G0378; J1171; J1650; J1885; J2270; J2310; J2405; J2765; J8499; Q0162